=== PATIENT | female | born 1955 | race Caucasian/White ===

== ENCOUNTER 2018-07-22 17:22 | Observation (INO) ==
[2018-07-22] MEDS ORDERED: 0.9 % Sodium Chloride 1,000 ML IVC ONE ×2 (18:03→18:04)
[2018-07-22 18:24] LABS: Basophils % 0.3 %; Hematocrit 49.2 % (35.3-44.9); Hemoglobin 16.5 g/dL (11.5-15.4); Immature Granulocytes % 0.3 % (0-4); Lymphocytes # 1.7 K/mcL (0.6-4.6); Mean Corpuscular HGB Conc 33.5 g/dL (31.6-35.5); Mean Corpuscular Hemoglobin 31.9 pg (28.0-33.3); Mean Corpuscular Volume 95.2 fL (83.0-100.0); Mean Platelet Volume 11.7 fL (9.4-12.4); Monocytes # 0.5 K/mcL (0.0-1.3); Monocytes % 3.8 %; Platelet Count 282 K/mcL (140-400); Red Blood Count 5.17 M/mcL (3.82-4.97); Red Cell Distribution Width 12.7 % (11.5-14.5); Segmented Neutrophils % 81.6 %
[2018-07-22 18:43] LABS: Acetaminophen < 10 mcg/mL (10-20); BUN/Creatinine Ratio 30 (6-26); Blood Urea Nitrogen 22 mg/dL (8-23); Calcium 9.9 mg/dL (8.6-10.3); Carbon Dioxide 15 mEq/L (23-29); Chloride 106 mEq/L (98-107); Ethanol < 10 mg/dL (Less than 10); Glucose 76 mg/dL (70-105); Osmolality,Calculated 290 (280-300); Salicylate < 2.5 mg/dL (15.0-30.0); Sodium 139 mEq/L (136-145); eGFR For Non-African Americans > 60 (> 60)
--- NOTE | 2018-07-22 19:07 | Emergency Department Note ---
Disposition Clinical Impression: Dehydration, Hx of schizophrenia Leukocytosis Qualifiers: Leukocytosis type: unspecified Qualified Code(s): D72.829 - Elevated white blood cell count, unspecified Disposition: Admitted As Inpatient Condition: Good Referrals: NONE,PCP [Primary Care Provider] - Forms: ED Satisfaction Letter Time of Disposition: 20:33 General Adult HPI - General Chief complaint: ED Altered Mental Status Stated complaint: General weakness Time Seen by Provider: 07/22/18 17:30 Source: patient, EMS Mode of arrival: ambulatory Limitations: other (Patient does not talk) Nursing Notes Reviewed: Yes Vital Signs Reviewed: Yes - History of Present Illness HPI Narrative: Patient is a 62-year-old female that comes to the emergency department after being found in her apartment by her daughter drenched in sweat. Daughter states that when she found her in her house it was approximately 100 degrees. The patient was in her underwear and was completely drenched. Patient's daughter states that patient has been undergoing more stress lately due to loss of family members. Patient daughter also states that she has a history of schizophrenia and had a previous diagnosis of MS. Daughter states that she has not been taking her medications in approximately 2 years. Daughter states that she feels like her mother has been depressed since the passing of the family members. Daughter also stated that when she found her mother lying on the bed clutching her chest. Pain Scale: 0 - Related Data Home Medications Medication Instructions Recorded Confirmed LORazepam [Ativan] 2 mg PO HS 11/20/15 04/02/17 Previous Rx's Medication Instructions Recorded Docusate [Colace] 100 mg PO BID PRN #30 capsule 04/02/17 Ondansetron ODT [Zofran ODT] 4 mg SL Q6HR #30 tab.rapdis 04/02/17 HYDROcodone/Acet 5/325 mg [[place] 1 tab PO Q6H PRN #12 tab 11/29/17 5-325 mg] Allergies Allergy/AdvReac Type Severity Reaction Status Date / Time Sulfa (Sulfonamide Allergy Rash Verified 04/02/17 07:35 Antibiotics) azithromycin [From Zithromax] AdvReac Headache Verified 04/02/17 07:35 codeine AdvReac Headache Verified 04/02/17 07:35 Oxycodone [From Percocet] AdvReac Nausea Verified 04/02/17 07:35 prednisone AdvReac Abdominal Verified 04/02/17 07:35 Pain All systems ED: reviewed and negative except as stated. Constitutional: Reports: weakness, other (Diaphoretic) Cardiovascular: Reports: other (Clutching her chest) Past Medical History - Past Medical History Medical history: Reports: GERD, hypertension, kidney stones Surgical history: Reports: cataract, hysterectomy, other Psychiatric history: Reports: anxiety, bipolar, depression - Social History Smoking Status: Former smoker Smokeless Tobacco Status: No Alcohol use: Reports: rarely Drug use: Reports: none Physical Exam - General Limitations: other (Patient is nonverbal at the time of exam.) General appearance: alert, in no apparent distress, lethargic - Head Head exam: atraumatic, normocephalic - Eye Eye exam: Present: normal appearance, EOMI - Neck Neck exam: Present: normal inspection, full ROM, trachea midline - Respiratory Respiratory exam: Present: normal lung sounds bilaterally. Absent: respiratory distress, wheezes - Cardiovascular Cardiovascular exam: Present: regular rate, normal rhythm, normal heart sounds, +S1, +S2 - Abdominal Exam Abdominal exam: Present: soft, Non-Tender, normal bowel sounds - Neurological Exam Neurological exam: Present: alert, other (Patient does not verbalize orientation ) - Psychiatric Psychiatric exam: Present: flat affect - Skin Skin exam: Present: warm, dry, intact Course Vital Signs Temperature 98 F 07/22/18 17:26 Pulse Rate 104 07/22/18 17:26 Respiratory Rate 22 07/22/18 17:26 Blood Pressure 141/79 07/22/18 17:26 O2 Sat by Pulse Oximetry 97 07/22/18 17:26 Temperature 98 F 07/22/18 17:26 Pulse Rate 79 07/22/18 19:38 Respiratory Rate 16 07/22/18 19:38 Blood Pressure 135/77 07/22/18 19:38 O2 Sat by Pulse Oximetry 97 07/22/18 19:38 Oxygen Delivery Oxygen Delivery Room Air Medical Decision Making - MDM Narrative Medical decision making narrative: Due the patient's and into the emergency department after being found by her daughter drenched in sweat and clenching her chest will obtain a CBC, BMP, troponin, EKG as well as medical screening labs for psychiatric evaluation including ethanol, salicylate, acetaminophen and urine drug screen. 12.3. Patient had an elevated BUN to creatinine ratio of 30. This is suggestive of possible dehydration. Due to the patient having been in an apartment that was approximately 100 degrees and diaphoretic clutching her chest and feel it is important for the patient be admitted to the hospital due to concern for possible cardiac involvement due to the patient clutching her chest and not verbalizing her chest pain. The patient was also pink slipped due to having concern of the patient being able to take care of herself. Patient has a history of schizophrenia and has been off for medications and was found by her daughter laying in the bed with a temperature in her apartment of 100 degrees. Feel that is necessary for the patient be admitted for further evaluation and management and possible psychiatric evaluation. I called and spoke with Dr. Jamison the admitting hospitalist and he is accepted the patient to their service. A psychiatric consult was placed at his request. The patient's pink slip is on the chart. - Lab Data Lab results reviewed: Yes I reviewed the patient's lab results. Result diagrams: 07/22/18 17:33 07/22/18 17:33 Lab Results 07/22/18 07/22/18 07/22/18 Range/Units 17:33 17:33 17:33 WBC 12.3 H (4.3-11.1) K/mcL RBC 5.17 H (3.82-4.97) M/mcL Hgb 16.5 H (11.5-15.4) g/dL Hct 49.2 H (35.3-44.9) % MCV 95.2 (83.0-100.0) fL MCH 31.9 (28.0-33.3) pg MCHC 33.5 (31.6-35.5) g/dL RDW 12.7 (11.5-14.5) % Plt Count 282 (140-400) K/mcL MPV 11.7 (9.4-12.4) fL Immature Gran % 0.3 (0-4) % Seg Neutrophils % 81.6 % Lymphocytes % 14.0 % Monocytes % 3.8 % Eosinophils % 0.0 % Basophils % 0.3 % Neutrophils # 10.0 H (1.6-8.9) K/mcL Lymphocytes # 1.7 (0.6-4.6) K/mcL Monocytes # 0.5 (0.0-1.3) K/mcL Eosinophils # 0.0 (0.0-0.6) K/mcL Basophils # 0.0 (0.0-0.2) K/mcL Sodium 139 (136-145) mEq/L Potassium 4.0 (3.5-5.1) mEq/L Chloride 106 (98-107) mEq/L Carbon Dioxide 15 L (23-29) mEq/L BUN 22 (8-23) mg/dL Creatinine 0.74 (0.60-1.20) mg/dL Est GFR ( Amer) > 60 (> 60) Est GFR (Non-Af Amer) > 60 (> 60) BUN/Creatinine Ratio 30 H (6-26) Glucose 76 (70-105) mg/dL Calculated Osmolality 290 (280-300) Calcium 9.9 (8.6-10.3) mg/dL Troponin I < 0.03 (< 0.04) ng/mL Salicylates < 2.5 L (15.0-30.0) mg/dL Acetaminophen < 10 L (10-20) mcg/mL Ethyl Alcohol < 10 (Less than 10) mg/dL - EKG Data EKG #1 EKG attestation: Yes I reviewed and interpreted this EKG. EKG results narrative: EKG shows a sinus tachycardia at a rate of 104 beats from it, RI interval 118, Q 's duration 83, QTC of 437 with a normal axis. No evidence of STEMI on EKG.
--- NOTE | 2018-07-22 19:30 | Emergency Department Note ---
Disposition Clinical Impression: Dehydration, Hx of schizophrenia Leukocytosis Qualifiers: Leukocytosis type: unspecified Qualified Code(s): D72.829 - Elevated white blood cell count, unspecified Disposition: Admitted As Inpatient Condition: Good General Adult HPI - General Chief complaint: ED Altered Mental Status Stated complaint: General weakness Time Seen by Provider: 07/22/18 17:30 Source: patient, EMS Mode of arrival: ambulatory Limitations: other (Patient is nonverbal at the time of exam.) - History of Present Illness Pain Scale: 0 - Related Data Home Medications Medication Instructions Recorded Confirmed LORazepam [Ativan] 1.5 mg PO HS 07/22/18 07/22/18 Allergies Allergy/AdvReac Type Severity Reaction Status Date / Time Sulfa (Sulfonamide Allergy Rash Verified 07/22/18 20:45 Antibiotics) azithromycin [From Zithromax] AdvReac Headache Verified 07/22/18 20:45 codeine AdvReac Headache Verified 07/22/18 20:45 Oxycodone [From Percocet] AdvReac Nausea Verified 07/22/18 20:45 prednisone AdvReac Abdominal Verified 07/22/18 20:45 Pain Constitutional: Reports: weakness, other (Diaphoretic) Cardiovascular: Reports: other (Clutching her chest) Past Medical History - Past Medical History Medical history: Reports: GERD, hypertension, kidney stones Surgical history: Reports: cataract, hysterectomy, other Psychiatric history: Reports: anxiety, bipolar, depression - Social History Smoking Status: Former smoker Smokeless Tobacco Status: No Alcohol use: Reports: rarely Drug use: Reports: none Physical Exam - General Limitations: other (Patient is nonverbal at the time of exam.) General appearance: alert, in no apparent distress, lethargic Course Vital Signs Temperature 98 F 07/22/18 17:26 Pulse Rate 104 07/22/18 17:26 Respiratory Rate 22 07/22/18 17:26 Blood Pressure 141/79 07/22/18 17:26 O2 Sat by Pulse Oximetry 97 07/22/18 17:26 Temperature 98 F 07/22/18 17:26 Pulse Rate 80 07/22/18 21:27 Respiratory Rate 16 07/22/18 21:27 Blood Pressure 139/79 07/22/18 21:27 O2 Sat by Pulse Oximetry 97 07/22/18 21:27 Oxygen Delivery Oxygen Delivery Room Air Medical Decision Making - Lab Data Result diagrams: 07/22/18 17:33 07/22/18 17:33 Lab Results 07/22/18 07/22/18 07/22/18 Range/Units 17:33 17:33 17:33 WBC 12.3 H (4.3-11.1) K/mcL RBC 5.17 H (3.82-4.97) M/mcL Hgb 16.5 H (11.5-15.4) g/dL Hct 49.2 H (35.3-44.9) % MCV 95.2 (83.0-100.0) fL MCH 31.9 (28.0-33.3) pg MCHC 33.5 (31.6-35.5) g/dL RDW 12.7 (11.5-14.5) % Plt Count 282 (140-400) K/mcL MPV 11.7 (9.4-12.4) fL Immature Gran % 0.3 (0-4) % Seg Neutrophils % 81.6 % Lymphocytes % 14.0 % Monocytes % 3.8 % Eosinophils % 0.0 % Basophils % 0.3 % Neutrophils # 10.0 H (1.6-8.9) K/mcL Lymphocytes # 1.7 (0.6-4.6) K/mcL Monocytes # 0.5 (0.0-1.3) K/mcL Eosinophils # 0.0 (0.0-0.6) K/mcL Basophils # 0.0 (0.0-0.2) K/mcL Sodium 139 (136-145) mEq/L Potassium 4.0 (3.5-5.1) mEq/L Chloride 106 (98-107) mEq/L Carbon Dioxide 15 L (23-29) mEq/L BUN 22 (8-23) mg/dL Creatinine 0.74 (0.60-1.20) mg/dL Est GFR ( Amer) > 60 (> 60) Est GFR (Non-Af Amer) > 60 (> 60) BUN/Creatinine Ratio 30 H (6-26) Glucose 76 (70-105) mg/dL Calculated Osmolality 290 (280-300) Calcium 9.9 (8.6-10.3) mg/dL Troponin I < 0.03 (< 0.04) ng/mL Urine Color (Yellow) Urine Clarity (Clear) Urine pH (5.0-8.0) pH Units Ur Specific [place] (1.010-1.025) Urine Protein (Neg-Trace) mg/dL Urine Glucose (UA) (Normal) mg/dL Urine Ketones (Negative) mg/dL Urine Blood (Negative) Urine Nitrite (Negative) Urine Bilirubin (Negative) Urine Urobilinogen (Normal) mg/dL Ur Leukocyte Esterase (Negative) Urine Microscopic RBC (0-3) per hpf Urine Microscopic WBC (0-3) per hpf Ur Squamous Epith Cells (None-Few) per lpf Urine Bacteria (None-Few) per hpf Hyaline Casts (None-Few) per lpf Salicylates < 2.5 L (15.0-30.0) mg/dL Urine Opiates Screen (Pbnzuh=541) ng/mL Acetaminophen < 10 L (10-20) mcg/mL Ur Barbiturates Screen (Zygfwo=018) ng/mL Ur Phencyclidine Scrn (Cutoff=25) ng/mL Ur Amphetamines Screen (Cyetrn=3013) ng/mL U Benzodiazepines Scrn (Svwhof=624) ng/mL Urine Cocaine Screen (Cutoff= 300) ng/mL U Marijuana (THC) Screen (Cutoff = 50) ng/mL Ur Drug Screen Interp Ethyl Alcohol < 10 (Less than 10) mg/dL 07/22/18 07/22/18 Range/Units 20:32 20:32 WBC (4.3-11.1) K/mcL RBC (3.82-4.97) M/mcL Hgb (11.5-15.4) g/dL Hct (35.3-44.9) % MCV (83.0-100.0) fL MCH (28.0-33.3) pg MCHC (31.6-35.5) g/dL RDW (11.5-14.5) % Plt Count (140-400) K/mcL MPV (9.4-12.4) fL Immature Gran % (0-4) % Seg Neutrophils % % Lymphocytes % % Monocytes % % Eosinophils % % Basophils % % Neutrophils # (1.6-8.9) K/mcL Lymphocytes # (0.6-4.6) K/mcL Monocytes # (0.0-1.3) K/mcL Eosinophils # (0.0-0.6) K/mcL Basophils # (0.0-0.2) K/mcL Sodium (136-145) mEq/L Potassium (3.5-5.1) mEq/L Chloride (98-107) mEq/L Carbon Dioxide (23-29) mEq/L BUN (8-23) mg/dL Creatinine (0.60-1.20) mg/dL Est GFR ( Amer) (> 60) Est GFR (Non-Af Amer) (> 60) BUN/Creatinine Ratio (6-26) Glucose (70-105) mg/dL Calculated Osmolality (280-300) Calcium (8.6-10.3) mg/dL Troponin I (< 0.04) ng/mL Urine Color Yellow (Yellow) Urine Clarity Clear (Clear) Urine pH 5.5 (5.0-8.0) pH Units Ur Specific [place] 1.026 H (1.010-1.025) Urine Protein 30 H (Neg-Trace) mg/dL Urine Glucose (UA) Normal (Normal) mg/dL Urine Ketones 80 H (Negative) mg/dL Urine Blood Negative (Negative) Urine Nitrite Negative (Negative) Urine Bilirubin Negative (Negative) Urine Urobilinogen Normal (Normal) mg/dL Ur Leukocyte Esterase Negative (Negative) Urine Microscopic RBC 3-5 H (0-3) per hpf Urine Microscopic WBC 0-3 (0-3) per hpf Ur Squamous Epith Cells Many H (None-Few) per lpf Urine Bacteria None Seen (None-Few) per hpf Hyaline Casts None Seen (None-Few) per lpf Salicylates (15.0-30.0) mg/dL Urine Opiates Screen Negative (Tbontq=685) ng/mL Acetaminophen (10-20) mcg/mL Ur Barbiturates Screen Negative (Onxxsh=032) ng/mL Ur Phencyclidine Scrn Negative (Cutoff=25) ng/mL Ur Amphetamines Screen Negative (Pzxbqj=5899) ng/mL U Benzodiazepines Scrn Negative (Gywvst=808) ng/mL Urine Cocaine Screen Negative (Cutoff= 300) ng/mL U Marijuana (THC) Screen Negative (Cutoff = 50) ng/mL Ur Drug Screen Interp See Below Ethyl Alcohol (Less than 10) mg/dL Attestation Statement - Attestation Attestation: I examined this patient and my medical decision-making was reviewed with the Resident Physician. I agree with the documented findings, disposition and treatment plan as described except to the extent set forth below. Patient with a history of schizophrenia who is been off medications for about 2 years. Was in house with a temperature exceeding 90 degrees Fahrenheit, was found by her daughter pouring sweat and clutching her chest. She is not answering any questions for me. She does follow most commands. The daughter describes what sounds like could be cycles of depression and maikel. She says she is decompensated over the last 3 months or so as her abdomen multiple major events in her life. Cardiac rule out is warranted given the history above and the patient's inability to answer questions for me. We will admit her medically on a pink slip since she is unable to care for herself, and had an inpatient psychiatric evaluation.
[2018-07-22 20:49] LABS: Bilirubin,Urine Negative (Negative); Blood,Urine Negative (Negative); Clarity,Urine Clear (Clear); Color,Urine Yellow (Yellow); Glucose,Urine (UA) Normal (Normal); Ketones,Urine 80 mg/dL (Negative); Leukocyte Esterase,Urine Negative (Negative); Nitrite,Urine Negative (Negative); PH,Urine 5.5 pH Units (5.0-8.0); Protein,Urine 30 mg/dL (Neg-Trace); Specific Gravity,Urine 1.026 (1.010-1.025); Urobilinogen,Urine Normal (Normal)
[2018-07-22 20:53] LABS: Bacteria,Urine None Seen per hpf (None-Few); Hyaline Casts,Urine None Seen per lpf (None-Few); Squamous Epithelial Cell,Urine Many per lpf (None-Few); WBC,Urine 0-3 per hpf (0-3)
[2018-07-22 20:58] LABS: Amphetamine Screen,Urine Negative ng/mL (Cutoff=1000); Barbiturate Screen,Urine Negative ng/mL (Cutoff=200); Benzodiazepines Screen,Urine Negative ng/mL (Cutoff=200); Cannabinoid Screen,Urine Negative ng/mL (Cutoff = 50); Cocaine Screen,Urine Negative ng/mL (Cutoff= 300); Opiate Screen,Urine Negative ng/mL (Cutoff=300); Phencyclidine Screen,Urine Negative ng/mL (Cutoff=25)
[2018-07-23] MEDS ORDERED: Naloxone 0.4 MG/ML INJ IVP PRN (00:11)
[2018-07-23] MEDS ORDERED: 0.9 % Sodium Chloride 1,000 ML IVC SCH (00:15)
--- NOTE | 2018-07-23 00:19 | Internal Med History&Physical ---
Date of Encounter: 07/23/18 Time of Encounter: 00:15 Internal Medicine - H&P: HPI Chief complaint: weakness Admitted From: Home Plans for Post Hospital Care: Home History of present illness: Ms. Quinonez is a 62 year old female presented to the emergency department after her daughter found her in her apartment drenched in sweat. I was not able to get history from patient as she is nonverbal and family was not present during my encounter. History obtained from EMR. The temperature patient's home was 102 degrees. She was seen to be clutching her chest by her daughter. Patient has a history of bipolar disorder but is not on any medication for this as per [facility]. She is on lorazepam 1.5 mg at night, given by her PCP. There is also no evidence that she see psychiatry on [facility]. Unclear what medication patient used to take for bipolar disorder. Past Med Surg Social Fam HX - Past Medical History Medical history: GERD, hypertension, kidney stones Additional medical history: hiatal hernia Psychiatric history: anxiety, bipolar, depression - Past Surgical History Surgical History: cataract, hysterectomy, other Additional surgical history: kvng fundoplication. craniotomy. rhinoplasty. cervical llymph node biopsy. EGD - Social History Smoking Status: Former smoker Smokeless Tobacco Status: No Alcohol use: rarely Drug use: none - Family History Father Living Status: Still Living Hx Family Cardiac Disorders: Yes Hx Family Psychosocial Disorders: Yes (Schizo) Mother Living Status: Still Living Hx Family GI Disorders: Yes Hx Family Endocrine Disorder: Yes (Thyroid) Hx Family Autoimmune Disorders: Yes Hx Family Medical Disorders: Yes Brother Living Status: Hx Family Psychosocial Disorders: Yes Internal Medicine - H&P: Meds LORazepam [Ativan] 1.5 mg PO HS 07/22/18 [History] 3 Allergy/AdvReac Type Severity Reaction Status Date / Time Sulfa (Sulfonamide Allergy Rash Verified 07/22/18 20:45 Antibiotics) azithromycin [From Zithromax] AdvReac Headache Verified 07/22/18 20:45 codeine AdvReac Headache Verified 07/22/18 20:45 Oxycodone [From Percocet] AdvReac Nausea Verified 07/22/18 20:45 prednisone AdvReac Abdominal Verified 07/22/18 20:45 Pain ROS unobtainable: other (Patient does not answer any questions.) All Systems PM: A 10-system review of systems was performed and is negative for pertinent findings except as documented above in the HPI. - Constitutional Vitals: Temp Pulse Resp BP Pulse Ox 99.9 F H 81 18 170/70 96 07/22/18 23:52 07/22/18 23:52 07/22/18 23:52 07/22/18 23:52 07/22/18 23:52 Exam: General: without distress. Flat affect, nonverbal, HEENT: Head atraumatic, normocephalic, EOMI, PERRL, neck nontender to palpation , absent lymphadenopathy, Moist Mucous Membranes, Heart: Regular rate and rhythm with no murmur Lungs: Clear to auscultation bilaterally Abdomen: Soft nontender, nondistended positive bowel sounds Skin: warm and dry, absent rash Extremities: Absent pedal edema, Neuro: Awake, does not follow commands, just stares, does not answer any questions Vascular: Radial and pedal pulses 2 out of 4 Internal Med - H&P Results - Labs CBC & Chem 7: 07/22/18 17:33 07/22/18 17:33 - Assessment and plan (1) Dehydration Current Visit: Yes Status: Acute Assessment and plan: 62-year-old female found by her daughter in her house drenching in sweat. Patient's house was 100 degrees Fahrenheit CBC indicating some hemoconcentration with elevation in WBC hemoglobin, hematocrit. Specific gravity of urine also elevated. Patient is afebrile, blood pressure within normal limits. Plan: Continue IV fluids. (2) History of bipolar disorder Current Visit: Yes Status: Acute Assessment and plan: The patient has a history of bipolar disorder however unclear who made the diagnosis or if she is followed by psychiatrist Currently she is not on any medication for bipolar disorder PCP prescribed lorazepam Would recommend calling PCP for further information on this. (3) DVT prophylaxis Current Visit: Yes Status: Acute Assessment and plan: Heparin subcutaneous - Time Spent With Patient Total time spent is greater than 50% in coordination of care (as documented) at patient's floor/unit and/or counseling patient:
[2018-07-23] MEDS: *HR* Heparin 5,000 UNIT/ML VIAL SQ SCH ×3 (05:05→22:03)
[2018-07-23 05:51] LABS: Basophils # 0.1 K/mcL (0.0-0.2); Basophils % 0.5 %; Eosinophils % 0.2 %; Hematocrit 42.5 % (35.3-44.9); Immature Granulocytes % 0.2 % (0-4); Lymphocytes # 3.1 K/mcL (0.6-4.6); Lymphocytes % 25.1 %; Mean Corpuscular HGB Conc 33.2 g/dL (31.6-35.5); Mean Corpuscular Hemoglobin 31.3 pg (28.0-33.3); Mean Corpuscular Volume 94.2 fL (83.0-100.0); Mean Platelet Volume 11.5 fL (9.4-12.4); Monocytes # 0.8 K/mcL (0.0-1.3); Monocytes % 6.3 %; Neutrophils # 8.4 K/mcL (1.6-8.9); Platelet Count 248 K/mcL (140-400); Red Blood Count 4.51 M/mcL (3.82-4.97); Red Cell Distribution Width 12.9 % (11.5-14.5); Segmented Neutrophils % 67.7 %
[2018-07-23 05:53] LABS: Hemoglobin 14.1 g/dL (11.5-15.4)
[2018-07-23 06:05] LABS: BUN/Creatinine Ratio 24 (6-26); Blood Urea Nitrogen 15 mg/dL (8-23); Calcium 8.8 mg/dL (8.6-10.3); Carbon Dioxide 15 mEq/L (23-29); Chloride 110 mEq/L (98-107); Glucose 65 mg/dL (70-105); Osmolality,Calculated 285 (280-300); Sodium 138 mEq/L (136-145); eGFR For Non-African Americans > 60 (> 60)
[2018-07-23] MEDS ORDERED: *HR* LORazepam 2 MG/ML VIAL IVP STA ×2 (12:43→15:45)
--- NOTE | 2018-07-23 13:36 | Consult Note ---
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 Quinonez is a 62 year old female The patient is a poor historian she did not speak to me. She did stare at me and appeared to understand some of what I was saying. The patient's daughter came in and provided the history. Chief complaint. The patient is sent on consult for schizophrenia. The daughters report is that she has not been eating not been drinking. History of present illness the patient was in her usual state of health and mood until about age 50. The patient had a brain tumor removed but had no recurrence. The patient patient was liter diagnosed with multiple sclerosis. She is followed by the [facility] of neurology Dr. Durant. He has done lumbar punctures and MRIs and reports that her MS is relatively inactive. The patient was last seen one year within the last year. She is on no current medicines for multiple sclerosis. One of her concerns was a sense of pain going up and down the spine like electric shock. 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 The patient was diagnosed with schizophrenia and about age 58 this is a relatively late onset for this. She was treated by Dr. Gaston Peoples and an unknown antipsychotic. This antipsychotic was filled [facility] and she last got a one year ago. Thus the patient has not taken an antipsychotic for over one year. The patient was in her apartment and her daughter was coming to visit her but the patient was eating less talking less and had become mute by the time the daughter come in. The landlord called the daughter saying they could not get into the apartment to put in new carpet. When the apartment was open the air conditioner was off the temperature Department was about 100 degrees the patient was sweating and minimal clothes and not speaking. She was brought in for the treatment of elevated temperature possible heatstroke dehydration. CC: Lino Jamison MD Past Med Surg Social Fam HX - Past Medical History Source: unable to obtain Medical history: GERD, hypertension, kidney stones - Past Psychiatric History Psychiatric history: Reports: schizophrenia Family psychiatric history: Unknown Family History of Suicide: Unknown - Past Surgical History Surgical History: cataract, hysterectomy, other - Social History Smoking Status: Former smoker Smokeless Tobacco Status: No Alcohol use: rarely Drug use: none Occupational status: disabled Current living situation: Home - Independent Activity Level: Independent ambulation Recent Out of Country Travel Within the Last 8 Weeks: No Exposure or Possible Exposure to Illness During Travel: No - Family History Father Living Status: Still Living Hx Family Cardiac Disorders: Yes Hx Family Psychosocial Disorders: Yes (Schizo) Mother Living Status: Still Living Hx Family GI Disorders: Yes Hx Family Endocrine Disorder: Yes (Thyroid) Hx Family Autoimmune Disorders: Yes Hx Family Medical Disorders: Yes Brother Living Status: Hx Family Psychosocial Disorders: Yes Medications & Allergies LORazepam [Ativan] 1.5 mg PO HS 07/22/18 [History] 3 Allergy/AdvReac Type Severity Reaction Status Date / Time Sulfa (Sulfonamide Allergy Rash Verified 07/22/18 20:45 Antibiotics) azithromycin [From Zithromax] AdvReac Headache Verified 07/22/18 20:45 codeine AdvReac Headache Verified 07/22/18 20:45 Oxycodone [From Percocet] AdvReac Nausea Verified 07/22/18 20:45 prednisone AdvReac Abdominal Verified 07/22/18 20:45 Pain Review of Systems Psychiatric: Reports: change in appetite, other Psychiatry Exam - Constitutional Vitals: Temp Pulse Resp BP Pulse Ox 98.4 F 67 16 160/65 96 07/23/18 11:27 07/23/18 11:27 07/23/18 11:27 07/23/18 11:27 07/23/18 11:27 General appearance: well-groomed, thin - Musculoskeletal Gait: other Station: stiff - Psychiatric Patient Orientation: Yes Other Level of alertness: Other Behavior: withdrawn Psychomotor activity: Catatonic Eye Contact: Maintains Eye Contact Mood Description: Depressed Affect description: tearful Speech Volume: No speech Speech pattern: normal rate Attention Span Ability: Unable to Focus Intelligence Estimate: Average Judgment: Poor Insight: None Results - Labs Labs: Laboratory Last Values WBC 12.4 K/mcL (4.3-11.1) H 07/23/18 04:20 RBC 4.51 M/mcL (3.82-4.97) 07/23/18 04:20 Hgb 14.1 g/dL (11.5-15.4) D 07/23/18 04:20 Hct 42.5 % (35.3-44.9) 07/23/18 04:20 MCV 94.2 fL (83.0-100.0) 07/23/18 04:20 MCH 31.3 pg (28.0-33.3) 07/23/18 04:20 MCHC 33.2 g/dL (31.6-35.5) 07/23/18 04:20 RDW 12.9 % (11.5-14.5) 07/23/18 04:20 Plt Count 248 K/mcL (140-400) 07/23/18 04:20 MPV 11.5 fL (9.4-12.4) 07/23/18 04:20 Immature Gran % 0.2 % (0-4) 07/23/18 04:20 Seg Neutrophils % 67.7 % 07/23/18 04:20 Lymphocytes % 25.1 % 07/23/18 04:20 Monocytes % 6.3 % 07/23/18 04:20 Eosinophils % 0.2 % 07/23/18 04:20 Basophils % 0.5 % 07/23/18 04:20 Neutrophils # 8.4 K/mcL (1.6-8.9) 07/23/18 04:20 Lymphocytes # 3.1 K/mcL (0.6-4.6) 07/23/18 04:20 Monocytes # 0.8 K/mcL (0.0-1.3) 07/23/18 04:20 Eosinophils # 0.0 K/mcL (0.0-0.6) 07/23/18 04:20 Basophils # 0.1 K/mcL (0.0-0.2) 07/23/18 04:20 Sodium 138 mEq/L (136-145) 07/23/18 04:20 Potassium 4.0 mEq/L (3.5-5.1) 07/23/18 04:20 Chloride 110 mEq/L (98-107) H 07/23/18 04:20 Carbon Dioxide 15 mEq/L (23-29) L 07/23/18 04:20 BUN 15 mg/dL (8-23) 07/23/18 04:20 Creatinine 0.62 mg/dL (0.60-1.20) 07/23/18 04:20 Est GFR ( Amer) > 60 (> 60) 07/23/18 04:20 Est GFR (Non-Af Amer) > 60 (> 60) 07/23/18 04:20 BUN/Creatinine Ratio 24 (6-26) 07/23/18 04:20 Glucose 65 mg/dL (70-105) L 07/23/18 04:20 Calculated Osmolality 285 (280-300) 07/23/18 04:20 Calcium 8.8 mg/dL (8.6-10.3) 07/23/18 04:20 Troponin I < 0.03 ng/mL (< 0.04) 07/23/18 08:13 Urine Color Yellow (Yellow) 07/22/18 20:32 Urine Clarity Clear (Clear) 07/22/18 20:32 Urine pH 5.5 pH Units (5.0-8.0) 07/22/18 20:32 Ur Specific [place] 1.026 (1.010-1.025) H 07/22/18 20:32 Urine Protein 30 mg/dL (Neg-Trace) H 07/22/18 20:32 Urine Glucose (UA) Normal mg/dL (Normal) 07/22/18 20:32 Urine Ketones 80 mg/dL (Negative) H 07/22/18 20:32 Urine Blood Negative (Negative) 07/22/18 20:32 Urine Nitrite Negative (Negative) 07/22/18 20:32 Urine Bilirubin Negative (Negative) 07/22/18 20:32 Urine Urobilinogen Normal mg/dL (Normal) 07/22/18 20:32 Ur Leukocyte Esterase Negative (Negative) 07/22/18 20:32 Urine Microscopic RBC 3-5 per hpf (0-3) H 07/22/18 20:32 Urine Microscopic WBC 0-3 per hpf (0-3) 07/22/18 20:32 Ur Squamous Epith Cells Many per lpf (None-Few) H 07/22/18 20:32 Urine Bacteria None Seen per hpf (None-Few) 07/22/18 20:32 Hyaline Casts None Seen per lpf (None-Few) 07/22/18 20:32 Salicylates < 2.5 mg/dL (15.0-30.0) L 07/22/18 17:33 Urine Opiates Screen Negative ng/mL (Yyiydo=646) 07/22/18 20:32 Acetaminophen < 10 mcg/mL (10-20) L 07/22/18 17:33 Ur Barbiturates Screen Negative ng/mL (Cfjlpu=973) 07/22/18 20:32 Ur Phencyclidine Scrn Negative ng/mL (Cutoff=25) 07/22/18 20:32 Ur Amphetamines Screen Negative ng/mL (Fkgfan=9983) 07/22/18 20:32 U Benzodiazepines Scrn Negative ng/mL (Qovwnb=538) 07/22/18 20:32 Urine Cocaine Screen Negative ng/mL (Cutoff= 300) 07/22/18 20:32 U Marijuana (THC) Screen Negative ng/mL (Cutoff = 50) 07/22/18 20:32 Ur Drug Screen Interp See Below 07/22/18 20:32 Ethyl Alcohol < 10 mg/dL (Less than 10) 07/22/18 17:33 - Impressions Impressions Chest X-Ray 07/23/18 07:43 IMPRESSION: No acute cardiopulmonary disease D/ / Mitchell Peck MD / Mitchell Peck MD Interpreting Provider: Mitchell Peck MD Consult Discharge Plan - Plan Referrals: Aura Davies HOISTING ENGINEER [Non-Partnered Physician] -
--- NOTE | 2018-07-23 14:20 | Discharge Summary ---
Date of Encounter: 07/23/18 Time of Encounter: 14:15 Hospital course: Ms. Quinonez is a 62 year old female - Time Spent with Patient Total time spent providing and/or coordinating discharge services: - Discharge Medications Home Medications: LORazepam [Ativan] 1.5 mg PO HS 07/22/18 [History] Allergies/Adverse Reactions: 3 Allergy/AdvReac Type Severity Reaction Status Date / Time Sulfa (Sulfonamide Allergy Rash Verified 07/22/18 20:45 Antibiotics) azithromycin [From Zithromax] AdvReac Headache Verified 07/22/18 20:45 codeine AdvReac Headache Verified 07/22/18 20:45 Oxycodone [From Percocet] AdvReac Nausea Verified 07/22/18 20:45 prednisone AdvReac Abdominal Verified 07/22/18 20:45 Pain Date of admission: 07/22/18 20:52 Primary care physician: PCP NONE Consults: 07/22/18 23:25 Consult to Silver Lap Machine Tender [CONS] Routine Reason for SW Consult: PT found by EMS unable to answer questions daughter concerned unable to care for self - Constitutional Vitals: Temp Pulse Resp BP Pulse Ox 98.4 F 67 16 160/65 96 07/23/18 11:27 07/23/18 11:27 07/23/18 11:27 07/23/18 11:27 07/23/18 11:27 - Patient Status Condition: Good - Discharge Instructions Follow Up With: Aura Davies APN [Non-Partnered Physician] -
--- NOTE | 2018-07-23 14:27 | Internal Med Progress Note ---
<JacielHung C - Last Filed: 07/23/18 14:24> Hospitalist Progress Note - Encounter Date of Encounter: 07/23/18 Time of Encounter: 14:24 - Subjective Interval History: Patient was apparently found in her apartment by her daughter, the temperature was 100 degrees the patient was profusely sweating and in a sort of catatonic state. She was admitted and treated for dehydration and bipolar disorder not on psychiatric medications. Patient seen and examined this morning, she will make eye contact but does not follow commands or respond to questions either verbally or nonverbally. - Exam Vitals: Temp Pulse Resp BP Pulse Ox 98.4 F 67 16 160/65 96 07/23/18 11:27 07/23/18 11:27 07/23/18 11:27 07/23/18 11:27 07/23/18 11:27 Exam: Patient in no acute distress, affect unable to be determined, orientation unable to be determined Heart regular rate and rhythm, no murmur rub or gallop Lungs clear to auscultation, no wheeze, rales, rhonchi Abdomen soft, bowel sounds auscultated Legs not edematous, skin warm and dry Patient was moving all 4 extremities - Assessment and Plan (1) Catatonic schizophrenia Current Visit: Yes Status: Acute Assessment and Plan: Psychiatry consultation due to patient's history of bipolar disorder and or schizophrenia Psychiatry attributes the patient's behavior to catatonic schizophrenia, currently in a catatonic state Psychiatry is treating the patient with lorazepam, attempting to bring patient out of her catatonic state They have stated that once the patient is able to take food by mouth, ambulate, medically stable they will take her to the psychiatry unit We will continue to follow psychiatry recommendations and monitor the patient medical status Social work has also been involved to coordinate plan around discharge with daughter (2) Dehydration Current Visit: Yes Status: Acute Assessment and Plan: Patient received IV fluids and volume status is currently euvolemic No other current signs of dehydration or volume depletion Vitals and labs are stable DVT Prophylaxis: DVT prophylaxis with heparin subcutaneous - Time Spent with Patient Total time spent is greater than 50% in coordination of care (as documented) at patient's floor/unit and/or counseling patient: Internal Medicine: Result - Labs CBC & Chem 7: 07/23/18 04:20 07/23/18 04:20 Labs: Short CBC 07/23/18 Range/Units 04:20 WBC 12.4 H (4.3-11.1) K/mcL Hgb 14.1 D (11.5-15.4) g/dL Hct 42.5 (35.3-44.9) % Plt Count 248 (140-400) K/mcL Neutrophils # 8.4 (1.6-8.9) K/mcL BMP 07/23/18 04:20 Sodium 138 Potassium 4.0 Chloride 110 H Carbon Dioxide 15 L BUN 15 Creatinine 0.62 Glucose 65 L Calcium 8.8 Cardiac Enzymes 07/23/18 07/23/18 Range/Units 08:13 13:24 Troponin I < 0.03 < 0.03 (< 0.04) ng/mL - Impressions Impressions Chest X-Ray 07/23/18 07:43 IMPRESSION: No acute cardiopulmonary disease D/ / Mitchell Peck MD / Mitchell Peck MD Interpreting Provider: Mitchell Peck MD Consult Discharge Plan - Plan Referrals: Aura Davies ZIPPER MEASURER [Non-Partnered Physician] - <Candelario Valerio - Last Filed: 07/23/18 15:18> Hospitalist Progress Note - Encounter Date of Encounter: 07/23/18 - Exam Vitals: Temp Pulse Resp BP Pulse Ox 98.6 F 81 16 120/79 95 07/23/18 14:59 07/23/18 14:59 07/23/18 14:59 07/23/18 14:59 07/23/18 14:59 - Assessment and Plan (1) Dehydration Current Visit: Yes Status: Acute (2) History of bipolar disorder Current Visit: Yes Status: Acute (3) DVT prophylaxis Current Visit: Yes Status: Acute - Time Spent with Patient Total time spent is greater than 50% in coordination of care (as documented) at patient's floor/unit and/or counseling patient: Internal Medicine: Result - Labs CBC & Chem 7: 07/23/18 04:20 07/23/18 04:20 Labs: Short CBC 07/23/18 Range/Units 04:20 WBC 12.4 H (4.3-11.1) K/mcL Hgb 14.1 D (11.5-15.4) g/dL Hct 42.5 (35.3-44.9) % Plt Count 248 (140-400) K/mcL Neutrophils # 8.4 (1.6-8.9) K/mcL BMP 07/23/18 04:20 Sodium 138 Potassium 4.0 Chloride 110 H Carbon Dioxide 15 L BUN 15 Creatinine 0.62 Glucose 65 L Calcium 8.8 Cardiac Enzymes 07/23/18 07/23/18 Range/Units 08:13 13:24 Troponin I < 0.03 < 0.03 (< 0.04) ng/mL - Impressions Impressions Chest X-Ray 07/23/18 07:43 IMPRESSION: No acute cardiopulmonary disease D/ / Mitchell Peck MD / Mitchell Peck MD Interpreting Provider: Mitchell Peck MD - Attending Attestation I have seen and examined this patient independently. I have discussed with resident physician Dr. Grissom regarding the management plan. Agree with the documentation.
[2018-07-23] MEDS ORDERED: D5% in 0.45% NACL 1,000 ML IVC SCH (15:30)
[2018-07-23] MEDS ORDERED: *HR* LORazepam 1 MG TABLET PO SCH (21:00)
[2018-07-23] MEDS ORDERED: Melatonin 3 MG TABLET PO PRN (23:19)
[2018-07-24 04:03] LABS: Basophils % 0.3 %; Eosinophils # 0.1 K/mcL (0.0-0.6); Eosinophils % 0.9 %; Hematocrit 41.5 % (35.3-44.9); Hemoglobin 14.3 g/dL (11.5-15.4); Immature Granulocytes % 0.2 % (0-4); Lymphocytes # 3.6 K/mcL (0.6-4.6); Mean Corpuscular HGB Conc 34.5 g/dL (31.6-35.5); Mean Corpuscular Hemoglobin 31.9 pg (28.0-33.3); Mean Corpuscular Volume 92.6 fL (83.0-100.0); Mean Platelet Volume 11.6 fL (9.4-12.4); Monocytes # 1.1 K/mcL (0.0-1.3); Monocytes % 9.2 %; Neutrophils # 7.2 K/mcL (1.6-8.9); Platelet Count 224 K/mcL (140-400); Red Blood Count 4.48 M/mcL (3.82-4.97); Red Cell Distribution Width 12.6 % (11.5-14.5); Segmented Neutrophils % 59.4 %
[2018-07-24 04:18] LABS: BUN/Creatinine Ratio 21 (6-26); Blood Urea Nitrogen 12 mg/dL (8-23); Calcium 8.4 mg/dL (8.6-10.3); Carbon Dioxide 21 mEq/L (23-29); Chloride 109 mEq/L (98-107); Glucose 215 mg/dL (70-105); Osmolality,Calculated 288 (280-300); Potassium 3.5 mEq/L (3.5-5.1); Sodium 136 mEq/L (136-145); eGFR For Non-African Americans > 60 (> 60)
[2018-07-24] MEDS: *HR* Heparin 5,000 UNIT/ML VIAL SQ SCH ×2 (05:38→13:17)
--- NOTE | 2018-07-24 10:41 | Discharge Summary ---
<Hung Grissom - Last Filed: 07/24/18 12:59> - NOTES TO OUTPATIENT PROVIDER Notes to Outpatient Provider: Patient was admitted for dehydration and altered mental status. She recieved supportive care and psychiatry determined she was in a catatonic state. Her clinical status responded to supportive care and her catatonic state responded to lorazepam. We will discharge to psychiatry unit for management. Orders not resulted at time of discharge: Pending orders 07/24/18 07:26 Ionized Calcium,venous blood Routine Date of Encounter: 07/24/18 Time of Encounter: 10:41 - Discharge Diagnosis (1) Catatonic schizophrenia Priority: Primary Status: Acute Assessment and Plan: Patient has history of mental illness with previous diagnosis of bipolar disorder Psychiatry consult here diagnosed catatonic scizophrenia, in a current catatonic state Treatment with lorazepam greatly improved patient mental state Patient clinical disposition stable We will discharge to psychiatry unit for further management (2) Dehydration Priority: Secondary Status: Resolved Assessment and Plan: Patient was admitted for dehydration Clinical disposition improved with supportive care Stable for discharge Hospital course: Ms. Quinonez is a 62 year old female with a past medical history of hypertension gastroesophageal reflux disease and renal stones, she also has a complicated mental health history consisting of bipolar disorder, anxiety and depression. She presented to the emergency department after her daughter found her in her apartment transient sweat with the internal temperature of approximately 100 degrees in the room. The patient was in altered mental status, she was not responding to questions or commands but was fully conscious. She was also clutching her chest in a presumed indication of chest pain. She was admitted for dehydration, chest pain workup, catatonic state. Chest pain workup consisting of a chest x-ray, EKG, troponin were all negative. Supportive care including intravenous fluids was initiated for dehydration, with 2 which the patient responded well. Psychiatry was also consulted who came and saw the patient and diagnosed her with catatonic schizophrenia and a current catatonic state. Lorazepam was initiated. Psychiatry also documented that once the patient was out of her catatonic state and began to ambulate, respond, eat that they would be willing to take her voluntarily or involuntarily to the psychiatric unit. This was discussed with the patient's daughter who was making medical decisions at that time, she understood and agreed with the plan. The day after lorazepam treatment was initiated the patient's mental status improved drastically, to the point where she was fully verbal, following commands and communicating. Her clinical disposition was also greatly improved secondary to supportive care and intravenous fluids, the patient was also eating meals. Plan remains for discharge to psychiatric unit for further management of catatonic schizophrenia, as the patient does not seem to yet be safe for discharge to home. Patient is clinically stable for discharge from the floor - Time Spent with Patient Total time spent providing and/or coordinating discharge services: - Discharge Medications Home Medications: LORazepam [Ativan] 1.5 mg PO HS 07/22/18 [History] Allergies/Adverse Reactions: 3 Allergy/AdvReac Type Severity Reaction Status Date / Time Sulfa (Sulfonamide Allergy Rash Verified 07/22/18 20:45 Antibiotics) azithromycin [From Zithromax] AdvReac Headache Verified 07/22/18 20:45 codeine AdvReac Headache Verified 07/22/18 20:45 Oxycodone [From Percocet] AdvReac Nausea Verified 07/22/18 20:45 prednisone AdvReac Abdominal Verified 07/22/18 20:45 Pain Date of admission: 07/22/18 20:52 Primary care physician: PCP NONE Consults: 07/22/18 23:25 Consult to Television Cameraman [CONS] Routine Reason for SW Consult: PT found by EMS unable to answer questions daughter concerned unable to care for self Discharging clinician: Hung Grissom - Constitutional Vitals: Temp Pulse Resp BP Pulse Ox 98.3 F 76 15 105/66 97 07/24/18 07:08 07/24/18 07:08 07/24/18 07:08 07/24/18 07:08 07/24/18 07:08 Exam: Patient in no acute distress, alert and oriented x3 and communicating Heart regular rate and rhythm, no murmur rub or gallop Lungs clear to auscultation, no wheeze, rales, rhonchi Abdomen soft, bowel sounds auscultated Legs not edematous, skin warm and dry Patient was moving all 4 extremities - Patient Status Disposition: Transfer Psychiatric Hosp Condition: Good Functional capacity at discharge: independent ambulation Overall status at discharge: patient is progressing back to baseline - Discharge Instructions Follow Up With: Aura Davies APN [Non-Partnered Physician] - - Diet and Activity Activity: increase activity as tolerated Diet: low salt diet <Candelario Valerio - Last Filed: 07/24/18 14:59> Orders not resulted at time of discharge: Pending orders 07/24/18 07:26 Ionized Calcium,venous blood Routine Date of Encounter: 07/24/18 - Discharge Diagnosis (1) Dehydration Status: Resolved (2) History of bipolar disorder Status: Acute (3) DVT prophylaxis Status: Acute Hospital course: Ms. Quinonez is a 62 year old female - Time Spent with Patient Total time spent providing and/or coordinating discharge services: Date of admission: 07/22/18 20:52 Primary care physician: PCP NONE Consults: 07/22/18 23:25 Consult to Television Cameraman [CONS] Routine Reason for SW Consult: PT found by EMS unable to answer questions daughter concerned unable to care for self - Constitutional Vitals: Temp Pulse Resp BP Pulse Ox 98.0 F 79 16 110/22 96 07/24/18 11:40 07/24/18 11:40 07/24/18 11:40 07/24/18 11:40 07/24/18 11:40 - Attending Attestation I have seen and examined this pt independently. I have discussed with resident physician Dr. Grissom regarding the management plan. Agree with the documentation.
[2018-07-24 11:40] VITALS: BP 110/22
--- NOTE | 2018-07-27 15:50 | Electrocardiograph Report ---
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
== END 2018-07-24 14:21 ==
LOC: 3BNU 17:22 → EMEROOARM 17:22 → 3BNU 21:50
PROVIDERS: ADMIT Family Medicine; ATTEND Family Medicine

== ENCOUNTER 2018-07-24 14:39 | Inpatient (IN) ==
[2018-07-24] MEDS ORDERED: Haloperidol Lactate 5 MG/ML VIAL IM PRN (15:18)
[2018-07-24] MEDS ORDERED: Mag Hydrox/Al Hydrox/Simeth 30 ML UDC PO PRN (15:18)
[2018-07-24] MEDS ORDERED: MOM Conc 10 ML UD.LIQ PO PRN (15:18)
[2018-07-24] MEDS ORDERED: Acetaminophen 325 MG TABLET PO PRN (15:18)
[2018-07-24] MEDS ORDERED: *HR* LORazepam 1 MG TABLET PO PRN (15:18)
[2018-07-24] MEDS ORDERED: *HR* LORazepam 2 MG/ML VIAL IM PRN (15:18)
[2018-07-24] MEDS: *HR* LORazepam 0.5 MG TABLET PO SCH ×2 (16:28→20:54)
[2018-07-24] MEDS ORDERED: risperiDONE 0.25 MG TABLET PO SCH (21:00)
[2018-07-25] MEDS: *HR* LORazepam 0.5 MG TABLET PO SCH ×3 (09:00→20:46)
--- NOTE | 2018-07-25 10:42 | Psychiatry History & Physical ---
Date of Encounter: 07/25/18 Time of Encounter: 10:00 History of Present Illness Patient Stated Chief Complaint: I was at home, I stopped the ativan Medicare Admission Attestation: For traditional Medicare patients the provided hospital inpatient services are reasonable and necessary and in the case of services not specified as inpatient -only under 42 CFR 419.22 (n), that they are appropriately provided as inpatient services in accordance 42 CFR 412.3. For Critical Access Hospital the patient may reasonably be expected to be discharged or transferred to a hospital within 96 hours after admission to the Critical Access Hospital. Admitted From: Intrahospital Transfer Plans for Post Hospital Care: Home History of Present Illness: Ms. Quinonez is a 62 year old female ID the patient is a 62-year-old white female. She was seen on consult on the medical floor. She was admitted under an involuntary hospitalization. Chief complaint: I stopped taking the risperidone I did not think the Ativan helped me. I would like to go home. History of present illness: The patient was in her usual state of health and mood and she had been seeing her nurse practitioner at [facility] however sometime in the past 2 years she stopped taking the medicine risperidone. The patient remained on Ativan 1.5 mg daily at bedtime. I spoke with her daughter Fany who checked on her on her apartment frequently. However prior to admission to the medical floor she did not open her apartment door. When the maintenance crew came to put carpet and she would not open it up and went Fany opened up the patient's apartment she found the patient inside scantily clad sweating in an apartment with an Ambient temperature 100 degrees Fahrenheit. Patient was evaluated by the medical service and treated for dehydration. Her temperature gradually came down indices of hydration were improved but the patient remained mute immobile but did not have significant rigidity but resisted movement suggesting negativism. The patient had no exposure to antipsychotics. The patient had a history of catatonia and the reader is referred to previous records. The patient was diagnosed with either bipolar disorder or schizophrenia in her 50s. This occurred after she was evaluated for multiple sclerosis. Since then she has been told that she did not have multiple sclerosis. But the patient began to have a meningioma that was removed from the superior parietal area by neurosurgery. The patient is developed some delusions and more recently she had told her daughter that there were demons another trying to control her on her foot. The patient is always felt that she has some weakness and left-sided body. She does follow up at the [facility] neurology [facility] with a Dr. Durant. The most recent evaluation and brain imaging was reports show no intervals and they are not concerned about MS. In the past and 2009 hospitalization the patient exhibited features of catatonia with autonomic disturbances. Today the patient was examined and did not have features of catatonia but when seen on the medical floor she had catatonic stupor she responded favorably to 2 infusions of Ativan 0.5 mg. Last night she was treated with Seroquel which she did not tolerate it and risperidone which she does not want to take. She says that risperidone blunts personality. The patient was reluctant to give me some of the history about hallucinations or delusions Past Med Surg Social Fam HX - Past Medical History Medical history: hypertension, kidney stones - Past Psychiatric History Psychiatric history: Reports: bipolar, schizophrenia, previous psychiatric hospitalization Family psychiatric history: Yes Family History of Suicide: Completed - Past Surgical History Surgical History: cataract, hysterectomy, other - Social History Smoking Status: Never smoker Smokeless Tobacco Status: No Alcohol use: rarely Drug use: none Occupational status: previously employed Current living situation: Home - Independent Activity Level: Independent ambulation Recent Out of Country Travel Within the Last 8 Weeks: No Exposure or Possible Exposure to Illness During Travel: No - Family History Father Living Status: Still Living Hx Family Cardiac Disorders: Yes Mother Living Status: Still Living Hx Family GI Disorders: Yes Hx Family Endocrine Disorder: Yes (Thyroid) Hx Family Autoimmune Disorders: Yes Brother Living Status: Medications & Allergies LORazepam [Ativan] 1.5 mg PO HS 07/22/18 [History] 3 Allergy/AdvReac Type Severity Reaction Status Date / Time Sulfa (Sulfonamide Allergy Rash Verified 07/22/18 20:45 Antibiotics) azithromycin [From Zithromax] AdvReac Headache Verified 07/22/18 20:45 codeine AdvReac Headache Verified 07/22/18 20:45 Oxycodone [From Percocet] AdvReac Nausea Verified 07/22/18 20:45 prednisone AdvReac Abdominal Verified 07/22/18 20:45 Pain Review of Systems Constitutional: Reports: weakness Eyes: Denies: eye pain, vision change Ears, Nose, Throat: Denies: ear pain, throat pain, dental pain, hearing loss, congestion Cardiovascular: Denies: chest pain, palpitations, dyspnea on exertion Respiratory: Denies: cough, dyspnea, wheezes Gastrointestinal: Reports: diarrhea Musculoskeletal: Denies: joint swelling, joint pain Neurological: Reports: numbness, paresthesias Psychiatric: Reports: anhedonia Endocrine: Reports: fatigue Hematologic/Lymphatic: Denies: easy bruising, lymphadenopathy Allergic/Immunologic: Denies: urticaria, itchy eyes Exam - HEENT Head exam IM: Present: atraumatic Eye exam IM: Present: EOMI, normal appearance, PERRL ENT exam IM: Present: normal exam - Neurological Neurological exam: Present: CN II-XII intact - Respiratory Respiratory exam IM: Present: CTAB - GI/Abdominal GI/Abdominal exam IM: Present: normal bowel sounds, soft. Absent: tenderness - Extremities Extremities exam IM: Present: full ROM - Skin Skin exam IM: Present: dry, warm - Constitutional Vitals: Temp Pulse Resp BP 98.9 F 85 18 113/71 07/25/18 08:58 07/25/18 08:58 07/25/18 08:58 07/25/18 08:58 General appearance: age & developmentally appropriate, well-groomed, well- nourished - Musculoskeletal Gait: normal Station: relaxed Strength & Tone: normal for patient - Psychiatric Patient Orientation: Yes Person, Yes Time, Yes Place Level of alertness: Alert Behavior: calm, cooperative Psychomotor activity: Normal Eye Contact: Maintains Eye Contact Mood Description: Depressed Affect description: congruent with mood, constricted Speech Volume: Normal Speech pattern: normal rate, normal rhythm, normal tone, fluent, spontaneous Language & Vocabulary: consistent with education Thought Process: Linear, Goal Oriented Thought Content: No Suicidal ideation, No Homicidal ideation, No Overt delusions , Yes Gnosticist delusion Perceptual Disturbances: Yes Auditory hallucinations, Yes Visual hallucinations Attention Span Ability: Capable of Focused Attention Memory Description: Grossly Intact Patient Reliability: Questionable Historian Fund of knowledge: Yes abstraction ability, Yes average, Yes aware of current events Intelligence Estimate: Average Judgment: Limited Insight: Minimal Assessment and Plan (1) GERD (gastroesophageal reflux disease) Current visit: No Status: Chronic Plan: Admit inpatient for safety and stabilization, Close observation, Monitor appetite Risks, benefits, side effects, alternatives discussed w/pt: Yes Patient agreeable to treatment: Yes Plans for Post Hospital Care: Home Qualifiers: Esophagitis presence: esophagitis presence not specified Qualified Code(s) : K21.9 - Gastro-esophageal reflux disease without esophagitis (2) Dehydration Current visit: No Status: Resolved Plan: Monitor appetite Risks, benefits, side effects, alternatives discussed w /pt: Yes Patient agreeable to treatment: Yes Plans for Post Hospital Care: Home (3) Catatonic schizophrenia Current visit: No Status: Acute Plan: Admit inpatient for safety and stabilization, Close observation, Suicide Precautions per unit protocol, Encourage participation in unit milieu, Group Therapy, Monitor sleep, Monitor appetite, Secure weapons, Family/Supportive other meeting Risks, benefits, side effects, alternatives discussed w/pt: Yes Patient agreeable to treatment: Yes Plans for Post Hospital Care: Home Estimated Length of Stay (Days): 7 (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
[2018-07-25] MEDS: ARIPiprazole 2 MG TABLET PO SCH (20:46)
[2018-07-25] MEDS: hydrOXYzine pamoate 25 MG CAPSULE PO PRN (20:46)
[2018-07-26] MEDS: *HR* LORazepam 0.5 MG TABLET PO SCH ×3 (09:18→20:02)
--- NOTE | 2018-07-26 10:37 | Psychiatry Progress Note ---
Date of Encounter: 07/26/18 Time of Encounter: 10:33 Subjective Interval history: Client admitted following period of med noncompliance. Found in apartment in catatonic state. Now she is back on Ativan and doing a bit better. Thoughts are organized today but she minimizes everything and is likely masking some ongoing psychosis. Has taken Risperdal in the past with negative side effects. Started on low dose Abilify here. Given Seroquel for sleep the first night and client felt too sedated the next day. Wants to try it again as she struggles with sleep but at a reduced dose. Very tearful yesterday. Tearful again this morning. Looks depressed. Client denies SI but admits she was not functioning at home. Probate paperwork filed. Needs more time. Review of Systems Constitutional: Denies: fever, chills, weakness, weight change Eyes: Denies: eye pain, vision change Ears, Nose, Throat: Denies: ear pain, throat pain, dental pain, hearing loss, congestion Cardiovascular: Denies: chest pain, palpitations, dyspnea on exertion Respiratory: Denies: cough, dyspnea, wheezes Gastrointestinal: Denies: abdominal pain, nausea, vomiting, diarrhea, constipation Musculoskeletal: Denies: joint swelling, joint pain Neurological: Denies: headache, weakness, numbness, memory loss Psychiatric: Reports: anhedonia Results - Vital Signs Vital Signs: Temp Pulse Resp BP 98.3 F 78 18 112/78 07/26/18 09:00 07/26/18 09:00 07/26/18 09:00 07/26/18 09:00 Assessment and Plan (1) Catatonic schizophrenia Current visit: No Status: Acute Plan: Continue hospitalization, Close observation, Suicide Precautions per unit protocol, Encourage participation in unit milieu, Group Therapy, Monitor sleep, Monitor appetite Risks, benefits, side effects, alternatives discussed w/pt: Yes Patient agreeable to treatment: Yes Consult Discharge Plan - Plan Referrals: [facility] [Outside] - 08/08/18 2:30 pm (The above appointment is with Gregorio Soares for outpatient psychiatric assessment and medication management services. Please arrive 10 minutes early to all appointments to complete the check-in process. Please bring your insurance card (or [facility]) and photo ID. If you are unable to keep any scheduled appointment, 24 hour business notice of cancellation is expected. ) Psychiatry Exam - Constitutional Vitals: Temp Pulse Resp BP 98.3 F 78 18 112/78 07/26/18 09:00 07/26/18 09:00 07/26/18 09:00 07/26/18 09:00 General appearance: age & developmentally appropriate, well-groomed, thin - Musculoskeletal Gait: normal Station: relaxed Strength & Tone: normal for patient - Psychiatric Patient Orientation: Yes Person, Yes Time, Yes Place Level of alertness: Alert Behavior: calm, cooperative Psychomotor activity: Normal Eye Contact: Maintains Eye Contact Mood Description: Depressed Affect description: tearful Speech Volume: Normal Speech pattern: normal rate, normal rhythm, normal tone, fluent, spontaneous Language & Vocabulary: consistent with education Thought Process: Linear Thought Content: No Suicidal ideation, No Homicidal ideation, Yes Overt delusions Perceptual Disturbances: No Auditory hallucinations, No Visual hallucinations Attention Span Ability: Capable of Focused Attention Memory Description: Grossly Intact Patient Reliability: Questionable Historian Fund of knowledge: Yes abstraction ability, Yes aware of current events Intelligence Estimate: Average Judgment: Limited Insight: Minimal
[2018-07-26] MEDS: ARIPiprazole 2 MG TABLET PO SCH (20:03)
[2018-07-26] MEDS: hydrOXYzine pamoate 25 MG CAPSULE PO PRN (21:37)
[2018-07-27] MEDS: *HR* LORazepam 0.5 MG TABLET PO SCH ×3 (08:58→20:24)
--- NOTE | 2018-07-27 09:27 | Psychiatry Progress Note ---
Date of Encounter: 07/27/18 Time of Encounter: 09:22 Subjective Interval history: Looking a little better. Still easily tearful. Daughter came last night with some POA paperwork and that triggered some emotions. However, client recognizes she needs help. Even said when she leaves here she probably won't be ready to go home and live alone. Wonders if she can stay with daughter for a while. Staff will be reaching out to her family as client should not be living alone immediately after discharge. Denies SI/HI but still very depressed. Denies AH/VH but still has some altered thoughts. This greeting card writer asked her specifically about the devil in her legs/feet today. Client did not answer question directly. When this greeting card writer asked her what she thought was wrong with her legs she thought about it and said "I don't know." Seems to be clearing some but needs more time. Did not sleep well with just 25mg of Seroquel. Had to take an additional prn. Client thinks because she was getting meds IV on the medical floor they were more potent and now that they are out of her system she can tolerate the 50mg Seroquel better. Will retry this dose tonight. Review of Systems Constitutional: Reports: weakness Eyes: Denies: eye pain, vision change Ears, Nose, Throat: Denies: ear pain, throat pain, dental pain, hearing loss, congestion Cardiovascular: Denies: chest pain, palpitations, dyspnea on exertion Respiratory: Denies: cough, dyspnea, wheezes Gastrointestinal: Denies: abdominal pain, nausea, vomiting, diarrhea, constipation Musculoskeletal: Reports: other Neurological: Reports: weakness Psychiatric: Reports: anhedonia Results - Vital Signs Vital Signs: Temp Pulse Resp BP 98.2 F 79 18 148/82 07/26/18 20:03 07/26/18 20:03 07/26/18 20:03 07/26/18 20:03 Assessment and Plan (1) Catatonic schizophrenia Current visit: No Status: Acute Plan: Continue hospitalization, Close observation, Suicide Precautions per unit protocol, Encourage participation in unit milieu, Group Therapy, Monitor sleep, Monitor appetite Risks, benefits, side effects, alternatives discussed w/pt: Yes Patient agreeable to treatment: Yes Consult Discharge Plan - Plan Referrals: [facility] [Outside] - 08/08/18 2:30 pm (The above appointment is with Gregorio Soares for outpatient psychiatric assessment and medication management services. Please arrive 10 minutes early to all appointments to complete the check-in process. Please bring your insurance card (or [facility] award letter) and photo ID. If you are unable to keep any scheduled appointment, 24 hour business notice of cancellation is expected. ) Psychiatry Exam - Constitutional Vitals: Temp Pulse Resp BP 98.2 F 79 18 148/82 07/26/18 20:03 07/26/18 20:03 07/26/18 20:03 07/26/18 20:03 General appearance: well-groomed, thin - Musculoskeletal Gait: normal Station: relaxed Strength & Tone: normal for patient - Psychiatric Patient Orientation: Yes Person, Yes Time, Yes Place Level of alertness: Alert Behavior: calm, cooperative Psychomotor activity: Normal Eye Contact: Maintains Eye Contact Mood Description: Depressed Affect description: congruent with mood Speech Volume: Normal Speech pattern: normal rate, normal rhythm, normal tone, fluent, spontaneous Language & Vocabulary: consistent with education Thought Process: Linear Thought Content: No Suicidal ideation, No Homicidal ideation, Yes Overt delusions Perceptual Disturbances: No Auditory hallucinations, No Visual hallucinations Attention Span Ability: Capable of Focused Attention Memory Description: Grossly Intact Patient Reliability: Questionable Historian Fund of knowledge: Yes abstraction ability, Yes aware of current events Intelligence Estimate: Average Judgment: Fair Insight: Partial
[2018-07-27] MEDS: ARIPiprazole 2 MG TABLET PO SCH (20:24)
[2018-07-28] MEDS: *HR* LORazepam 0.5 MG TABLET PO SCH ×3 (09:02→20:07)
--- NOTE | 2018-07-28 09:59 | Psychiatry Progress Note ---
Date of Encounter: 07/28/18 Time of Encounter: 09:57 Subjective Interval history: Looking a little better. Reports mood is still low but not suicidal. Slept better last night. Eating some. Spoke with daughter and it sounds like she can stay with her for a while after discharge. This is a much safer plan than having client return home alone. For today will move Abilify to AM and increase dose slightly to help with depression. No overt delusions today. Possible discharge early this week. Review of Systems Constitutional: Denies: fever, chills, weakness, weight change Eyes: Denies: eye pain, vision change Ears, Nose, Throat: Denies: ear pain, throat pain, dental pain, hearing loss, congestion Cardiovascular: Denies: chest pain, palpitations, dyspnea on exertion Respiratory: Denies: cough, dyspnea, wheezes Gastrointestinal: Denies: abdominal pain, nausea, vomiting, diarrhea, constipation Musculoskeletal: Denies: joint swelling, joint pain Neurological: Denies: headache, weakness, numbness, memory loss Psychiatric: Reports: anhedonia Results - Vital Signs Vital Signs: Temp Pulse Resp BP 98.4 F 73 17 151/85 07/27/18 19:53 07/27/18 19:53 07/27/18 19:53 07/27/18 19:53 Assessment and Plan (1) Catatonic schizophrenia Current visit: No Status: Acute Plan: Continue hospitalization, Close observation, Suicide Precautions per unit protocol, Encourage participation in unit milieu, Group Therapy, Monitor sleep, Monitor appetite Risks, benefits, side effects, alternatives discussed w/pt: Yes Patient agreeable to treatment: Yes Consult Discharge Plan - Plan Referrals: [facility] [Outside] - 08/08/18 2:30 pm (The above appointment is with Gregorio Soares for outpatient psychiatric assessment and medication management services. Please arrive 10 minutes early to all appointments to complete the check-in process. Please bring your insurance card (or [facility]) and photo ID. If you are unable to keep any scheduled appointment, 24 hour business notice of cancellation is expected. ) Psychiatry Exam - Constitutional Vitals: Temp Pulse Resp BP 98.4 F 73 17 151/85 07/27/18 19:53 07/27/18 19:53 07/27/18 19:53 07/27/18 19:53 General appearance: thin - Musculoskeletal Gait: normal Station: relaxed Strength & Tone: normal for patient - Psychiatric Patient Orientation: Yes Person, Yes Time, Yes Place Level of alertness: Alert Behavior: calm, cooperative Psychomotor activity: Normal Eye Contact: Maintains Eye Contact Mood Description: Depressed Affect description: congruent with mood Speech Volume: Normal Speech pattern: normal rate, normal rhythm, normal tone, fluent, spontaneous Language & Vocabulary: consistent with education Thought Process: Linear Thought Content: No Suicidal ideation, No Homicidal ideation, Yes Overt delusions Perceptual Disturbances: No Auditory hallucinations, No Visual hallucinations Attention Span Ability: Capable of Focused Attention Memory Description: Grossly Intact Patient Reliability: Reliable Historian Fund of knowledge: Yes abstraction ability, Yes aware of current events Intelligence Estimate: Average Judgment: Fair Insight: Partial
[2018-07-28] MEDS: ARIPiprazole 5 MG TABLET PO SCH (11:41)
[2018-07-29] MEDS: *HR* LORazepam 0.5 MG TABLET PO SCH ×3 (08:49→20:43)
[2018-07-29] MEDS: ARIPiprazole 5 MG TABLET PO SCH (08:49)
--- NOTE | 2018-07-29 11:51 | Psychiatry Progress Note ---
Date of Encounter: 07/29/18 Time of Encounter: 11:15 Subjective Interval history: Pt is a 62 yo, , female, x3 x3, daughter 38 son 42, who presents for Schizophrenia catatonic type. Pt noted that she feels she is improving slowly. Pt noted she is optimistic to return home with her daughter at her new house.....in [place], upon discharge. Pt denied any side effects to current medications. Pt noted she felt safe and comfortable on the unit. Pt was in agreement with treatment plan. Pt noted that she is doing pretty good today. Pt noted she slept 5-6 hours last night. Pt noted her appetite is good.....coming back slowly. Pt rated her depression a 3, on a scale of zero to ten with ten being the worst and zero being none. Pt rate her anxiety a 5, on the same scale. Pt denied any visual or auditory hallucination. Pt denied any thoughts to harm herself or anyone else. No TD noted, AIMS=0 Tobacco: Denies Alcohol: Denies Street: Denies Caffeine: Denies 1.Interval hx 2.Continue current medications 3.Review current labs 4.Pt had an opportunity to ask questions and discuss current treatment plan. 5.Supportive therapy was provided 6.Pt encouraged to consider group or individual therapy 7.Pt was in agreement with treatment plan. 8.Pt was educated on the risks benefits and side effects of current medications. 9. Continue to coordinate discharge planning to pt's daughter's home. Review of Systems Constitutional: Denies: fever, chills, weakness, weight change Eyes: Denies: eye pain, vision change Ears, Nose, Throat: Denies: ear pain, throat pain, dental pain, hearing loss, congestion Cardiovascular: Denies: chest pain, palpitations, dyspnea on exertion Respiratory: Denies: cough, dyspnea, wheezes Gastrointestinal: Denies: abdominal pain, nausea, vomiting, diarrhea, constipation Musculoskeletal: Denies: joint swelling, joint pain Neurological: Denies: headache, weakness, numbness, memory loss Psychiatric: Reports: anhedonia Results - Vital Signs Vital Signs: Temp Pulse Resp BP 98.2 F 74 16 123/79 07/29/18 09:00 07/29/18 09:00 07/29/18 09:00 07/29/18 09:00 Assessment and Plan (1) Catatonic schizophrenia Current visit: No Status: Acute Plan: Continue hospitalization, Close observation, Suicide Precautions per unit protocol, Encourage participation in unit milieu, Group Therapy, Monitor sleep, Monitor appetite Risks, benefits, side effects, alternatives discussed w/pt: Yes Patient agreeable to treatment: Yes Consult Discharge Plan - Plan Additional Instructions: Pt to discharge to [facility] ([facility]) . Referrals: [facility] [Outside] - 08/08/18 2:30 pm (The above appointment is with Gregorio Soares for outpatient psychiatric assessment and medication management services. Please arrive 10 minutes early to all appointments to complete the check-in process. Please bring your insurance card (or [facility] award letter) and photo ID. If you are unable to keep any scheduled appointment, 24 hour business notice of cancellation is expected. ) Psychiatry Exam - Constitutional Vitals: Temp Pulse Resp BP 98.2 F 74 16 123/79 07/29/18 09:00 07/29/18 09:00 07/29/18 09:00 07/29/18 09:00 General appearance: age & developmentally appropriate, well-groomed, well- nourished - Musculoskeletal Gait: normal Station: relaxed Strength & Tone: normal for patient - Psychiatric Patient Orientation: Yes Person, Yes Time, Yes Place Level of alertness: Alert Behavior: calm, cooperative Psychomotor activity: Normal Eye Contact: Maintains Eye Contact Mood Description: Euthymic/stable, Depressed Affect description: congruent with mood, full range Speech Volume: Normal Speech pattern: normal rate, normal rhythm, normal tone, fluent, spontaneous Language & Vocabulary: consistent with education Thought Process: Linear, Goal Oriented Thought Content: No Suicidal ideation, No Homicidal ideation, No Overt delusions Perceptual Disturbances: No Auditory hallucinations, No Visual hallucinations Attention Span Ability: Capable of Focused Attention Memory Description: Grossly Intact Patient Reliability: Reliable Historian Fund of knowledge: Yes abstraction ability, Yes aware of current events Intelligence Estimate: Average Judgment: Limited Insight: Partial
[2018-07-30] MEDS: hydrOXYzine pamoate 25 MG CAPSULE PO PRN (02:50)
[2018-07-30] MEDS: *HR* LORazepam 0.5 MG TABLET PO SCH ×3 (08:50→20:39)
[2018-07-30] MEDS: ARIPiprazole 5 MG TABLET PO SCH (08:50)
--- NOTE | 2018-07-30 10:46 | Psychiatry Progress Note ---
Date of Encounter: 07/30/18 Time of Encounter: 10:20 Subjective Interval history: Pt is a 62 yo, , female, x3 x3, daughter 38 son 42, who presents for Schizophrenia catatonic type. Pt noted that she feels she is improving slowly. Pt noted she is optimistic to return home with her daughter at her new house.....in [place], upon discharge planning for saturday. Pt denied any side effects to current medications. Pt noted she felt safe and comfortable on the unit. Pt was in agreement with treatment plan. Pt noted that she is doing pretty good today. Pt noted she slept 5-6 hours last night. Pt noted her appetite is good.....coming back slowly. Pt rated her depression a 0, on a scale of zero to ten with ten being the worst and zero being none. Pt rate her anxiety a 1, on the same scale. Pt denied any visual or auditory hallucination. Pt denied any thoughts to harm herself or anyone else. No TD noted, AIMS=0 Tobacco: Denies Alcohol: Denies Street: Denies Caffeine: Denies 1.Interval hx 2.Continue current medications 3.Review current labs 4.Pt had an opportunity to ask questions and discuss current treatment plan. 5.Supportive therapy was provided 6.Pt encouraged to consider group or individual therapy 7.Pt was in agreement with treatment plan. 8.Pt was educated on the risks benefits and side effects of current medications. 9. Continue to coordinate discharge planning to pt's daughter's home. 10. Continue abilify and quetiapine pt currently stable on current medication, pt previously failed 3 antipsychotics independently quetiapine, abilify and risperidone. Review of Systems Constitutional: Denies: fever, chills, weakness, weight change Eyes: Denies: eye pain, vision change Ears, Nose, Throat: Denies: ear pain, throat pain, dental pain, hearing loss, congestion Cardiovascular: Denies: chest pain, palpitations, dyspnea on exertion Respiratory: Denies: cough, dyspnea, wheezes Gastrointestinal: Denies: abdominal pain, nausea, vomiting, diarrhea, constipation Musculoskeletal: Denies: joint swelling, joint pain Neurological: Denies: headache, weakness, numbness, memory loss Psychiatric: Reports: anhedonia Results - Vital Signs Vital Signs: Temp Pulse Resp BP 99.2 F 83 16 104/72 07/30/18 09:00 07/30/18 09:00 07/30/18 09:00 07/30/18 09:00 Assessment and Plan (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 Please arrive 10 minutes early to all appointments to complete the check-in process. Please bring your insurance card (or [facility] award letter) and photo ID. If you are unable to keep any scheduled appointment, 24 hour business notice of cancellation is expected. ) Psychiatry Exam - Constitutional Vitals: Temp Pulse Resp BP 99.2 F 83 16 104/72 07/30/18 09:00 07/30/18 09:00 07/30/18 09:00 07/30/18 09:00 General appearance: age & developmentally appropriate, well-groomed, well- nourished - Musculoskeletal Gait: normal Station: relaxed Strength & Tone: normal for patient - Psychiatric Patient Orientation: Yes Person, Yes Time, Yes Place Level of alertness: Alert Behavior: calm, cooperative Psychomotor activity: Normal Eye Contact: Maintains Eye Contact Mood Description: Euthymic/stable Affect description: congruent with mood, full range Speech Volume: Normal Speech pattern: normal rate, normal rhythm, normal tone, fluent, spontaneous Language & Vocabulary: consistent with education Thought Process: Linear, Goal Oriented Thought Content: No Suicidal ideation, No Homicidal ideation, No Overt delusions Perceptual Disturbances: No Auditory hallucinations, No Visual hallucinations Attention Span Ability: Capable of Focused Attention Memory Description: Grossly Intact Patient Reliability: Reliable Historian Fund of knowledge: Yes abstraction ability, Yes aware of current events Intelligence Estimate: Average Judgment: Limited Insight: Partial
[2018-07-30] MEDS ORDERED: ARIPiprazole 5 MG TABLET PO SCH (21:00)
[2018-07-31] MEDS: *HR* LORazepam 0.5 MG TABLET PO SCH ×3 (08:12→21:03)
[2018-07-31] MEDS ORDERED: ARIPiprazole 5 MG TABLET PO SCH (10:47)
--- NOTE | 2018-07-31 10:50 | Psychiatry Progress Note ---
Date of Encounter: 07/31/18 Time of Encounter: 09:15 Subjective Interval history: Pt is a 62 yo, , female, x3 x3, daughter 38 son 42, who presents for Schizophrenia catatonic type. Pt noted that she feels she is improving slowly. Pt noted she continues to remain optimistic to return home with her daughter at her new house.....in [place], upon discharge planning for saturday08/01/2018. Pt denied any side effects to current medications. Pt noted she felt safe and comfortable on the unit. Pt was in agreement with treatment plan. Pt noted that she is doing pretty good today. Pt noted she slept 7 hours last night. Pt noted her appetite is good.....coming back slowly. Pt rated her depression a 0, on a scale of zero to ten with ten being the worst and zero being none. Pt rate her anxiety a 0, on the same scale. Pt denied any visual or auditory hallucination. Pt denied any thoughts to harm herself or anyone else. No TD noted, AIMS=0 Tobacco: Denies Alcohol: Denies Street: Denies Caffeine: Denies 1.Interval hx 2.Continue current medications 3.Review current labs 4.Pt had an opportunity to ask questions and discuss current treatment plan. 5.Supportive therapy was provided 6.Pt encouraged to consider group or individual therapy 7.Pt was in agreement with treatment plan. 8.Pt was educated on the risks benefits and side effects of current medications. 9. Continue to coordinate discharge planning to pt's daughter's home. 10. Continue abilify and quetiapine pt currently stable on current medication, pt previously failed 3 antipsychotics independently quetiapine, abilify and risperidone. Review of Systems Constitutional: Denies: fever, chills, weakness, weight change Eyes: Denies: eye pain, vision change Ears, Nose, Throat: Denies: ear pain, throat pain, dental pain, hearing loss, congestion Cardiovascular: Denies: chest pain, palpitations, dyspnea on exertion Respiratory: Denies: cough, dyspnea, wheezes Gastrointestinal: Denies: abdominal pain, nausea, vomiting, diarrhea, constipation Musculoskeletal: Denies: joint swelling, joint pain Neurological: Denies: headache, weakness, numbness, memory loss Psychiatric: Reports: anhedonia Results - Vital Signs Vital Signs: Temp Pulse Resp BP 98.5 F 71 16 116/67 07/31/18 08:28 07/31/18 08:28 07/31/18 08:28 07/31/18 08:28 Assessment and Plan (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 Please arrive 10 minutes early to all appointments to complete the check-in process. Please bring your insurance card (or [facility] award letter) and photo ID. If you are unable to keep any scheduled appointment, 24 hour business notice of cancellation is expected. ) Psychiatry Exam - Constitutional Vitals: Temp Pulse Resp BP 98.5 F 71 16 116/67 07/31/18 08:28 07/31/18 08:28 07/31/18 08:28 07/31/18 08:28 General appearance: age & developmentally appropriate, well-groomed, well- nourished - Musculoskeletal Gait: normal Station: relaxed Strength & Tone: normal for patient - Psychiatric Patient Orientation: Yes Person, Yes Time, Yes Place Level of alertness: Alert Behavior: calm, cooperative Psychomotor activity: Normal Eye Contact: Maintains Eye Contact Mood Description: Euthymic/stable Affect description: congruent with mood, full range Speech Volume: Normal Speech pattern: normal rate, normal rhythm, normal tone, fluent, spontaneous Language & Vocabulary: consistent with education Thought Process: Linear, Goal Oriented Thought Content: No Suicidal ideation, No Homicidal ideation, No Overt delusions Perceptual Disturbances: No Auditory hallucinations, No Visual hallucinations Attention Span Ability: Capable of Focused Attention Memory Description: Grossly Intact Patient Reliability: Reliable Historian Fund of knowledge: Yes abstraction ability, Yes aware of current events Intelligence Estimate: Average Judgment: Limited Insight: Partial
[2018-07-31] MEDS: hydrOXYzine pamoate 25 MG CAPSULE PO PRN (20:28)
[2018-08-01] MEDS: hydrOXYzine pamoate 25 MG CAPSULE PO PRN (02:43)
[2018-08-01 08:19] VITALS: BP 110/77
[2018-08-01] MEDS: *HR* LORazepam 0.5 MG TABLET PO SCH ×2 (08:32→15:26)
--- NOTE | 2018-08-01 10:58 | Discharge Summary ---
Date of Encounter: 08/01/18 Time of Encounter: 09:45 Diagnosis - Discharge Diagnosis (1) Catatonic schizophrenia Status: Acute Medications - Discharge Medications Prescriptions: ARIPiprazole [Abilify] 5 mg PO HS #30 tablet hydrOXYzine pamoate [HydrOXYzine Pamoate] 25 mg PO TID PRN #90 capsule PRN Reason: Anxiety Quetiapine Fumarate [Seroquel] 50 mg PO HS #30 tablet ARIPiprazole [Abilify] 5 mg PO HS #30 tablet 08/01/18 [Rx] Quetiapine Fumarate [Seroquel] 50 mg PO HS #30 tablet 08/01/18 [Rx] hydrOXYzine pamoate [HydrOXYzine Pamoate] 25 mg PO TID PRN #90 capsule 08/01/18 [Rx] 3 Allergy/AdvReac Type Severity Reaction Status Date / Time Sulfa (Sulfonamide Allergy Rash Verified 07/22/18 20:45 Antibiotics) azithromycin [From Zithromax] AdvReac Headache Verified 07/22/18 20:45 codeine AdvReac Headache Verified 07/22/18 20:45 Oxycodone [From Percocet] AdvReac Nausea Verified 07/22/18 20:45 prednisone AdvReac Abdominal Verified 07/22/18 20:45 Pain Provider Date of admission: 07/24/18 14:39 Primary care physician: PCP NONE Discharging clinician: Kar Meyers Psychiatry Exam - Constitutional Vitals: Temp Pulse Resp BP 99.7 F H 88 16 110/77 08/01/18 08:18 08/01/18 08:18 08/01/18 08:18 08/01/18 08:18 General appearance: age & developmentally appropriate, well-groomed, well- nourished - Musculoskeletal Gait: normal Station: relaxed Strength & Tone: normal for patient - Psychiatric Patient Orientation: Yes Person, Yes Time, Yes Place Level of alertness: Alert Behavior: calm, cooperative Psychomotor activity: Normal Eye Contact: Maintains Eye Contact Mood Description: Euthymic/stable Affect description: congruent with mood, full range Speech Volume: Normal Speech pattern: normal rate, normal rhythm, normal tone, fluent, spontaneous Language & Vocabulary: consistent with education Thought Process: Linear, Goal Oriented Thought Content: No Suicidal ideation, No Homicidal ideation, No Overt delusions Perceptual Disturbances: No Auditory hallucinations, No Visual hallucinations Attention Span Ability: Capable of Focused Attention Memory Description: Grossly Intact Patient Reliability: Reliable Historian Fund of knowledge: Yes abstraction ability, Yes aware of current events Intelligence Estimate: Average Judgment: Limited Insight: Partial Hospital Course Hospital course: Pt is a 62 yo, , female, x3 x3, daughter 38 son 42, who presents for Schizophrenia catatonic type. Pt noted that she feels she is improved significantly and feels safe discharging to her daughters home. Pt noted she continues to remain optimistic to D/C home with her daughter at her new house in [place]. Pt denied any side effects to current medications. Pt noted she felt safe and comfortable on the unit. Pt was in agreement with treatment plan. Pt noted that she is doing pretty good today. Pt noted she slept 7 hours last night. Pt noted her appetite is good.....coming back slowly. Pt rated her depression a 0, on a scale of zero to ten with ten being the worst and zero being none. Pt rate her anxiety a 0, on the same scale. Pt denied any visual or auditory hallucination. Pt denied any thoughts to harm herself or anyone else. Patient noted a significant reeducation in her Catatonia, depression and anxiety during her stay at [facility]. Pt noted that she slowly improved to the point that he was comfortable and safe to D/C home. Pt noted she felt hers medications were working well and denied any current side effects. Treatment team encouraged Pt to stay out of bed and try to find activities to do, verbalized understanding. pt reported that she felt safe on the unit and comfortable for D/C. Pt Denied suicidal/homicidal ideations, denied any problems or concerns with medications or side effects. PT voiced progression towards treatment goals and was offered a copy of updated treatment plan completed during visit today. Denied any immediate needs or concerns. Pt denied any access to guns or weapons Pt throughout her stay on in psych pt felt like his medications were working and felt comfortable being discharged on these medications. Pt was advised to take all medications as prescribed, follow up with all scheduled appointments and abstain from any alcohol or illicit substances. Pt was in agreement. Pt felt safe and comfortable to be discharged to her home and follow up with outpt mental health. Pt was very optimistic about her D/C. Pt felt safe and comfortable for D/C. The patient was educated primarily by verbal means about her diagnoses and their manifestations in her life. The option for treatment including group individual therapy programming was offered to her and the use of medications with all their potential risks, benefits, and side-effects were discussed with the pt at length. Pt was given the opportunity to ask questions and she participated in the treatment and planning process. Pt felt ready and eager to be discharged from the from the [facility] to be dishcarged home. Pt felt she was safe for this disposition. Pt was considered to be able to participate in informed consent and decision-making with respect to medical, legal and financial issues at the time of her discharge from the [facility]. Attempted again to place pt on monotherapy with antipsychiotics however pt was unable to do so. Pt has failed 3 antipsychotics as mono therpay, risperidone, abilify, and quetiapine. No TD noted, AIMS=0 Tobacco: Denies Alcohol: Denies Street: Denies Caffeine: Denies 1.Interval hx 2.Continue current medications 3.Review current labs 4.Pt had an opportunity to ask questions and discuss current treatment plan. 5.Supportive therapy was provided 6.Pt encouraged to consider group or individual therapy 7.Pt was in agreement with treatment plan. 8.Pt was educated on the risks benefits and side effects of current medications. 9. Continue to coordinate discharge planning to pt's daughter's home. 10. Continue abilify and quetiapine pt currently stable on current medication, pt previously failed 3 antipsychotics independently quetiapine, abilify and risperidone. 11. take all medications as prescribed 12 abstain from any alcohol or illict substances. 13. follow up with all sheduled appointments. 14. D/C Pt home Time spent discussing smoking cessation with patient: 3 to 10 minutes Does patient wish to continue nicotine replacement upon disc: No - Time Spent with Patient Total time spent providing and/or coordinating discharge services: Greater than 30 minutes Assessment and Plan - Patient/Caregiver Discharge Instructions Activity: resume usual activities as tolerated Diet: regular diet - Follow up Plan Follow up with: [facility] [Outside] - 08/08/18 2:30 pm (The above appointment is with Gregorio Soares for outpatient psychiatric assessment and medication management services. Please arrive 10 minutes early to all appointments to complete the check-in process. Please bring your insurance card (or [facility]) and photo ID. If you are unable to keep any scheduled appointment, 24 hour business notice of cancellation is expected. ) Overall status at discharge: patient is back to baseline Disposition: Home, Self-Care Quality - Multiple Antipsychotics Patient discharged on 2 or more antipsychotic medications: Yes - Justification Documentation of: History 3 failed trials of monotherapy (dose reductions attempted, monotherapy attempted, failed, risperidone, abilify, quetiapine) Procedures - Procedures Procedures: Medication Management, Crisis Stabilization, Supportive Therapy, Group Therapy, Psychoeducational Therapy
[2018-08-01] MEDS ORDERED: ARIPiprazole 5 MG TABLET PO SCH ×2 (11:00→21:00)
== END 2018-08-01 17:16 | disposition home or self-care (01) | DRG 885 ==
LOC: 1ANU 14:39
PROVIDERS: ADMIT Psychiatry & Neurology Forensic Psychiatry; ATTEND Psychiatry & Neurology Forensic Psychiatry